=== PATIENT | female | born 1965 | race Caucasian/White ===

== ENCOUNTER 2017-06-09 07:38 | Inpatient (IN) | payer BC ==
--- NOTE | 2017-05-24 19:35 | HP ---
CC: Dr. Lily Mendoza * PREOPERATIVE HISTORY AND PHYSICAL: DATE OF ADMISSION: This patient is scheduled for AA admission by Dr. Mane on 06/09/17. DATE OF PREOPERATIVE HISTORY AND PHYSICAL EXAMINATION: 05/24/17. ATTENDING SURGEON: Dr. Tino Mane (dictated by Lily Roland NP). CHIEF COMPLAINT: Obesity. HISTORY OF PRESENT ILLNESS: The patient is a 52-year-old female with class III obesity, a body mass index of 40, and weight-related comorbidities of sleep apnea and hypertension. She has had multiple structured attempts at weight loss and has not been able to sustain any weight that she did lose. She is seeking bariatric surgery as a more permanent solution to her obesity and comorbidities. She completed 6 months of medically supervised weight loss at [facility] and has completed all of the necessary preoperative diagnostic testing and evaluations. She has been deemed an appropriate candidate by Dr. Mane for laparoscopic sleeve gastrectomy. Dr. Mane described the nature of the surgical procedure, the expected results of the surgery, the relevant risks, benefits, and alternatives, and today, I have reviewed the typical hospitalization and expected postoperative care and recovery. The patient understands the need for compliance with the postoperative stages of the bariatric diet, exercise, vitamin and mineral supplementation, and followup visits. The patient has had a chance to ask questions and stated that she understands the information and is satisfied with the answers given to her questions. She will sign surgical consent on the day of surgery. PAST MEDICAL HISTORY: Significant for hypertension, obstructive sleep apnea requiring the use of CPAP, GERD, bilateral heel spurs, plantar fasciitis, and seasonal allergies. PAST SURGICAL HISTORY: Laparoscopic cholecystectomy, tubal ligation, tonsillectomy. MEDICATIONS: Amlodipine 10 mg p.o. daily in the morning. ALLERGIES: No known drug allergies. FAMILY HISTORY: Father in his mid 80s, described as chronically ill with COPD, hypertension, and fractured hip. Mother alive at age 72, described as obese with hypertension, COPD, oxygen dependent, and hypercholesterolemia. No known anesthesia complications in the family. The patient's maternal grandmother had deep vein thrombosis. Her brother had severe nosebleeds frequently that required cauterization. No other known bleeding tendencies. SOCIAL HISTORY: She is and lives with her . She and her are self-employed, and she works at home. She has never been a smoker. Previously drank alcohol socially and plans to abstain from alcohol postoperatively and denies the use of other substances. REVIEW OF SYSTEMS: She denies any constitutional symptoms. She is treated for hypertension. She denies any chest pain, palpitations, or history of myocardial infarction. She denies any history of deep vein thrombosis or pulmonary embolism. She has seasonal allergies and uses coab-qyf-xhhdbhh Afrin nasal spray as needed. She has obstructive sleep apnea and uses CPAP. She rarely has acid reflux, but it occurs when she has a late dinner. Her preoperative upper GI series reveal a small hiatal hernia. She denies any chronic diarrhea or constipation. She denies any dysuria. She is postmenopausal. She denies any gynecologic complaints. She has a history of plantar fasciitis and bilateral heel spurs and currently has pain in her left heel. She denies any new skin lesions. She denies any neurologic symptoms. She denies anxiety, depression, or suicidal thinking. She denies any history of deep vein thrombosis or pulmonary embolism. She denies any bleeding tendencies and has never received a blood transfusion. She states at the time of her tubal ligation that she was being put under anesthesia, she had a sensation of being suffocated and has a vivid memory of that and is therefore fearful of general anesthesia. PHYSICAL EXAMINATION GENERAL SURVEY: The patient is a 52-year-old morbidly obese female, well developed, in no acute distress. VITAL SIGNS: Height 63 inches, weight 226 pounds, body mass index 40, blood pressure 128/86, pulse 78 and regular, respiratory rate 18, temperature 97.4 tympanic. HEENT: Benign. NECK: Supple. No cervical lymphadenopathy. No thyromegaly. BACK: No CVA tenderness. LUNGS: Breath sounds bilaterally clear and equal. HEART: Regular rate and rhythm. No murmurs or rubs appreciated. ABDOMEN: Obese. Soft. Active bowel sounds. Nondistended. Nontender throughout. Multiple well-healed trocar surgical scars. Infraumbilical hernia that is reducible when she is supine. When she is standing, it bulges out to approximately the size of a tennis ball. No other obvious masses or organomegaly. No skin fold rashes. EXTREMITIES: Warm without edema or skin ulceration. PELVIC AND RECTAL: Deferred. NEUROLOGIC: Alert and oriented x3. Steady gait. SKIN: Warm, dry, intact. IMPRESSION: 1. Class III obesity. 2. Hypertension. 3. Obstructive sleep apnea requiring CPAP. PLAN: AA admission to Dr. Mane's service on 06/09/17, for laparoscopic sleeve gastrectomy. CORY ROLAND, HOSIERY REPAIRER [id number]/[facility] #: [id number] JUSTINO
[~2017-06-09 07:38] MED LIST: Buffered Lidocaine 0.9% SYRIN* 5 ML/SYR SYRINGE INTRADERM ONE; Buffered Lidocaine 0.9% SYRIN* 5 ML/SYR SYRINGE ONE; Clindamycin 900 MG IVPREMIX(* 900 MG/50 ML SDV IV ONE; Famotidine TAB* 20 MG ONE; Famotidine TAB* 20 MG PO ONE; Heparin VIAL(*) 5000 UNITS/ML VIAL (FIVE THOUSAND) ONE; Ibuprofen TAB* 400 MG ONE; Ibuprofen TAB* 400 MG PO ONE; Metoclopramide TAB* 10 MG ONE; Metoclopramide TAB* 10 MG PO ONE; Scopolamine 1.5 mg* PATCH ONE; Scopolamine 1.5 mg* PATCH TRANSDERM ONE; Sodium Citrate/Citric Acid* 15 ML UDC ONE; Sodium Citrate/Citric Acid* 15 ML UDC PO ONE; ceFAZolin 1 GM in Dextrose (*) 1 GM/50 ML BAG IVPB ONE; ceFAZolin 2 GM PREMIX(*) 2 GM/50 ML BAG IVPB ONE
[2017-06-09] MEDS ORDERED: Bupivacaine 0.25% EPI 200,000* 30 ML SDV ONE ×2 (10:19→11:49)
[2017-06-09] MEDS ORDERED: Midazolam* 1 MG/ML 2 ML VIAL (2 MG) ONE (10:35)
[2017-06-09] MEDS ORDERED: Lidocaine 2% PF * 5 ML VIAL ONE (10:35)
[2017-06-09] MEDS ORDERED: Ondansetron INJ* 2 MG/ML VIAL ONE (10:35)
[2017-06-09] MEDS ORDERED: Dexamethasone IV* 4 MG/ML 1 ML (4 MG) ONE (10:35)
[2017-06-09] MEDS ORDERED: Propofol* 10 MG/ML 20 ML BTL IV PUSH ONE (10:35)
[2017-06-09] MEDS ORDERED: Atracurium* 10 MG/ML 10 ML VIAL ONE (10:37)
[2017-06-09] MEDS ORDERED: fentaNYL* 50 MCG/ML 2 ML VIAL (100 MCG VIAL) ONE ×3 (10:42→13:49)
[2017-06-09] MEDS ORDERED: DiMENhydriNATE IV* 50 MG/ML VIAL IV PUSH PRN (12:00)
[2017-06-09] MEDS ORDERED: Bacitracin OINTMENT* 1 TUBE ONE (12:03)
[2017-06-09] MEDS ORDERED: Acetaminophen ADULT LIQ* 650 MG/20.3 ML UDC PO PRN (12:11)
[2017-06-09] MEDS ORDERED: HYDROcodone/ACET. 7.5/325 LIQ* 15 ML UDC PO PRN (12:11)
[2017-06-09] MEDS ORDERED: HYDROmorphone* 1 MG/ML 1 ML SYR ONE (12:48)
[2017-06-09] MEDS: fentaNYL* 50 MCG/ML 2 ML VIAL (100 MCG VIAL) IV PRN ×3 (12:50→13:50)
[2017-06-09] MEDS: HYDROmorphone* 1 MG/ML 1 ML SYR IV PRN ×4 (12:53→18:57)
[2017-06-09] MEDS: Ketorolac INJ* 30 MG/ML 1 ML VIAL IV PRN ×2 (15:42→22:21)
[2017-06-09] MEDS: Ondansetron INJ* 2 MG/ML VIAL IV PRN (15:59)
[2017-06-09] MEDS: Famotidine IV* 10 MG/ML 2 ML (20 mg) IV SCH (18:01)
[2017-06-09] MEDS ORDERED: Metoclopramide IV* 5 MG/ML 2 ML VIAL ONE (19:11)
[2017-06-09] MEDS: Heparin VIAL(*) 5000 UNITS/ML VIAL (FIVE THOUSAND) SUBCUT SCH (22:20)
[2017-06-10] MEDS: HYDROmorphone* 1 MG/ML 1 ML SYR IV PRN (02:57)
[2017-06-10] MEDS: Ondansetron INJ* 2 MG/ML VIAL IV PRN ×3 (02:57→20:26)
[2017-06-10] MEDS: Heparin VIAL(*) 5000 UNITS/ML VIAL (FIVE THOUSAND) SUBCUT SCH ×3 (05:37→21:35)
[2017-06-10] MEDS: Famotidine IV* 10 MG/ML 2 ML (20 mg) IV SCH ×2 (05:37→18:12)
[2017-06-10 06:27] LABS: Hematocrit 38 % (35-47); Hemoglobin 12.6 g/dl (12.0-16.0); Mean Corpuscular HGB Conc 33 g/dl (31-36); Mean Corpuscular Hemoglobin 28 pg (27-31); Mean Corpuscular Volume 86 fL (80-97); Mean Platelet Volume 10 um3 (7.4-10.4); Red Blood Count 4.45 10^6/ul (4.0-5.4); Red Cell Distribution Width 14 % (10.5-15); White Blood Count 12.3 10^3/ul (3.5-10.8)
[2017-06-10 06:41] LABS: BUN/Creatinine Ratio 14.1 (8-20); Calcium 9.4 mg/dL (8.6-10.3); EGFR African American 124.8 (>60); EGFR Non-African American 97.1 (>60); Potassium 3.7 mmol/L (3.5-5.0)
[2017-06-10] MEDS: Metoclopramide IV* 5 MG/ML 2 ML VIAL IV PRN (08:00)
--- NOTE | 2017-06-10 10:53 | RAD ---
Indication: Status post laparoscopic sleeve gastrectomy. Utilizing water-soluble contrast, sleeve gastrectomy was evaluated. There is some dilatation of the fundus of the stomach with a collapsed body of the remainder of the stomach. There is a small amount of contrast noted distally. The possibility of extrinsic compression or postoperative change at the junction between the fundus and the body of the stomach should be considered. Gastroesophageal reflux is noted. IMPRESSION: There is a moderately distended fundus of the stomach with reflux into the esophagus. At the junction of the body and the fundus, there appears to be some narrowing noted which may be postoperative in nature.
[2017-06-10] MEDS: Ketorolac INJ* 30 MG/ML 1 ML VIAL IV PRN ×2 (11:58→20:30)
[2017-06-10] MEDS: D5W 1/2 NS KCl 20 Meq 1000 ML* 1,000 ML IV SCH ×2 (14:30→23:56)
--- NOTE | 2017-06-10 16:55 | PN ---
Progress Note - Progress Note Date of Service: 06/10/17 SOAP: Subjective: Pt seen and examined. positive nausea. Vomited on 2 occasions. Ambulating and using incentive spirometer Objective: AF VSS uo good lungs clear abdo: soft/ND/minimal tenderness dressing intact no calf tenderness UGI: slow flow of contrast through midportion of sleeved stomach Assessment: POD 1 sleeve gastrectomy, umbilical hernia repair Plan: advance to Ice chips only d/c planning
[2017-06-11] MEDS: Heparin VIAL(*) 5000 UNITS/ML VIAL (FIVE THOUSAND) SUBCUT SCH (05:46)
[2017-06-11] MEDS: Famotidine IV* 10 MG/ML 2 ML (20 mg) IV SCH (05:46)
[2017-06-11] MEDS: Ketorolac INJ* 30 MG/ML 1 ML VIAL IV PRN ×2 (05:52→12:00)
[2017-06-11] MEDS: Metoclopramide IV* 5 MG/ML 2 ML VIAL IV PRN (07:35)
--- NOTE | 2017-06-11 09:06 | PN ---
Progress Note - Progress Note Date of Service: 06/11/17 Note: Surgery Progress: S: POD #2. Feels better today. Still feels "gas bubble" sensation in epigastric region. Overall, pain is not too bad (using only Toradol at present). Last episode of vomiting/reflux was last pm. Ambulating, voiding well. Current Medications Acetaminophen (Tylenol Adult Liq*) 650 mg PO Q6H PRN PRN Reason: Temp > 101 F Or Mild Pain Hydrocodone Bitart/Acetaminophen (Nortab 7.5/325 Liq*) 15 ml PO Q6H PRN PRN Reason: PAIN Famotidine (Pepcid Iv*) 20 mg IV Q12H [facility] Last Admin: 06/11/17 05:46 Dose: 20 mg Heparin Sodium (Porcine) (Heparin Vial(*)) 5,000 units SUBCUT Q8HR [facility] Last Admin: 06/11/17 05:46 Dose: 5,000 units Hydromorphone HCl (Dilaudid Iv*) 0.5 mg IV Q3H PRN PRN Reason: PAIN - SEVERE Last Admin: 06/10/17 02:57 Dose: 0.5 mg Potassium Chloride/Dextrose (D5w 1/2 Ns Kcl 20 Meq 1000 Ml*) 1,000 mls @ 75 mls /hr IV PER RATE [facility] Last Admin: 06/10/17 23:56 Dose: 75 mls/hr Ketorolac Tromethamine (Toradol Inj*) 30 mg IV Q6H PRN PRN Reason: PAIN Stop: 06/11/17 12:15 Last Admin: 06/11/17 05:52 Dose: 30 mg Metoclopramide HCl (Reglan Iv*) 10 mg IV Q6H PRN PRN Reason: NAUSEA/VOMITING Last Admin: 06/11/17 07:35 Dose: 10 mg Ondansetron HCl (Zofran Inj*) 4 mg IV Q6H PRN PRN Reason: NAUSEA/VOMITING Last Admin: 06/10/17 20:26 Dose: 4 mg Pharmacy Profile Note (Scopolomine Patch Remove*) 1 note PATCH OFF ONCE ONE Stop: 06/12/17 06:01 O: Afeb; VSS Intake and Output Last 24 Hours 06/09/17 06/10/17 06/11/17 06/12/17 06:59 06:59 06:59 06:59 Intake Total 1911 2341 Output Total 1700 4190 425 Balance 212 -1849 -425 Weight 217 lb Intake: IV Fluids 1911 893 CEFAZOLIN 3 GM 100 CLINDAMYCIN 900 MG 50 D5W 1/2 NS 20 meq KCL 893 LR 362 lr 1400 IVPB 1248 LR 1248 Oral 0 200 Output: Urine 1600 4180 425 Emesis 10 Estimated Blood Loss 100 Other: # Bowel Movements 0 0 # Voids 2 Gen: WN, NAD Heart: reg Lungs: clear ABd: BS (sl hypoactive); incisions w/ variable amts of dried blood; no active bleeding; soft, min tenderness No Labs A: s/p lap sleeve gastrectomy, improving P: likely will start desiree clears today; hopefully home 06/12 (Dr. Mane to see)
[2017-06-11] MEDS ORDERED: Lansoprazole susp Kit 3 MG/ML (30 MG = 10 ML) PO SCH (10:00)
[2017-06-11] MEDS ORDERED: Lansoprazole susp Kit 3 MG/ML (30 MG = 10 ML) ONE (10:00)
[2017-06-11] MEDS ORDERED: Lansoprazole SOLUTAB* 30 MG ONE (11:49)
[2017-06-11 14:24] VITALS: BP 158/90
[2017-06-12] MEDS ORDERED: Scopolomine PATCH Remove* 1 NOTE MISC PATCH OFF ONE (06:00)
[2017-06-12] MEDS ORDERED: Lansoprazole susp Kit 3 MG/ML (30 MG = 10 ML) PO SCH ×2 (09:00)
--- NOTE | 2017-06-15 03:48 | OP ---
CC: Dr. Lily Mendoza; [facility] OPERATIVE REPORT: DATE OF OPERATION: 06/09/17 DATE OF : 63 SURGEON: Tino Mane MD TIME ANALYSIS CLERK: MARILUZ Centeno ANESTHESIOLOGIST: Dr. Patton. ANESTHESIA: General. PRE-OP DIAGNOSES: 1. Clinically severe obesity. 2. Hypertension. 3. Obstructive sleep apnea. 4. Gastroesophageal reflux disease. 5. Umbilical hernia. POST-OP DIAGNOSES: 1. Clinically severe obesity. 2. Hypertension. 3. Obstructive sleep apnea. 4. Gastroesophageal reflux disease. 5. Umbilical hernia. OPERATIVE PROCEDURES: Laparoscopic sleeve gastrectomy and primary closure of umbilical hernia. ESTIMATED BLOOD LOSS: Minimal. FLUIDS: Minimal crystalloid fluid given. SPECIMEN: Portion of the stomach. DRAINS: None. COUNT: Lap pad count and instrument count correct at the end of the procedure. DESCRIPTION OF PROCEDURE: Ms. Krause was identified in the preoperative area, brought to the operati ng room and placed on the operating room table in a supine position. Preoperative antibiotics were given. Sequential devices were placed on bilateral lower extremities. General anesthesia was induc ed. The patient's abdomen was prepped and draped in the standard surgical fashion and a time-out wa s performed. Folds of the umbilicus were elevated anteriorly and a Veress needle was inserted into the abdominal cavity, which was then allowed to insufflate to a pressure of 15 mmHg. The patient tolerated the in sufflation well. [place] between the xiphoid and the umbilicus, just left of midline, a 12-mm trocar was inserted. Laparoscope was inserted through this. There was no evidence of injury from the tro car insertion or from the Veress needle, which was then removed. A clear umbilical hernia defect ap proximately 1.5 incised. Additional trocars were then placed in the following position: Two 5-mm in the left upper quadrant and a 12-mm in the right upper quadrant. The patient was placed in a steep reverse Trendelenburg. The stomach was decompressed with an OG tu be placed by the anesthesiologist. A Cruzito retractor was inserted through a subxiphoid port sit e and the liver was retracted anteriorly into the right. With this retraction, we exposed the gastroesophageal fat pad. This was grasped and retracted towar ds the right lower quadrant and blunt dissection was carried out to expose the left micheal. Review of the stomach showed that it was now decompressed. It was normal appearing without any lesi on. We could see some post surgical changes in the gallbladder fossa, but the pylorus muscle was re adily identifiable and we have counted approximately 6 cm proximal to this and made a retrogastric w indow along the greater curvature. The vasculature to this greater curvature was then taken with a LigaSure device right up to the angle of His. Posterior attachments were similarly taken until the stomach could be completely rotated along its axis. Next, the sleeve gastrectomy was created utilizing a 60-mm purple ALYSHA stapling device with Tri-Stapl e technology with reinforcements and we stapled from the area of the greater curvature just 6 cm pro ximal to the pylorus extending it toward the incisura. Prior to firing the stapler, a 40-Turkish filipe gie was inserted by the anesthesiologist and passed distally. Additional firings with similarly amparo ded 60 mm purple stapling device with reinforcements, were taken right up to the fundus removing a s ignificant portion of the stomach, which was then placed in an Endoscopic retrieval bag. Review of the staple line showed no bleeding. The bougie was easily removed. Cruzito retractor was then al so removed. Hemostasis was excellent. Attention was then turned towards the umbilical defect. Two interrupted 0 Polysorb sutures were uti lized through a separate stab incision overlying the umbilical skin and we suture closed this hernia defect that measured approximately 1.5 cm. There were no contents and we did not dissect the sac. Next, the stomach was then removed through the right upper quadrant port site with an endoscopic ret rieval bag and passed off as specimen. The abdomen was allowed to collapse. Trocar was removed und er direct vision and all skin incisions were reapproximated with skin zaida followed by a sterile dressing. The patient tolerated the procedure well, was transferred to the PACU in stable condition . [id number]/[facility] #: [id number]
--- NOTE | 2017-06-15 05:29 | DS ---
CC: Dr. Lily Mendoza DISCHARGE SUMMARY: DATE OF ADMISSION: 06/09/17 DATE OF DISCHARGE: 06/11/17 HISTORY: Ms. Krause is a 52-year-old female, worked up as an outpatient, with clinically severe obes ity. She was noted to also have an umbilical hernia on the day of surgery, who underwent a laparosc opic sleeve gastrectomy and umbilical hernia repair. Please see operative report for full details. Case was uneventful and the patient was transferred to the PACU and on to the short stay surgical u nit. The patient was treated with pain medications and antinausea medications, and she was maintained n.p .o. status until postoperative day 1. She underwent an upper GI study as is routine, on postoperati ve day 1. These images were reviewed with the radiologist. It did show a narrowing within the body of the sleeved stomach. This was felt to be edema or postsurgical changes. The patient was only a dvanced to ice chips on this postoperative day 1 and stayed in the hospital another day. By postoperative day 2, patient was ambulating and feeling somewhat better. She was started on a p. o. diet with just clear fluids. These were tolerated for the most part with 2 episodes of vomiting. One episode the day before was bloody and the one on day of discharge was not bloody. She was jeovanny luated on day of discharge by both and Brandon Valero and was discharged home on a bariatric clear di et. She was given a prescription for omeprazole and restarted on her multivitamins, for planned fol lowup as an outpatient. [id number]/[facility] #: [id number]
== END 2017-06-11 14:35 | disposition home or self-care (01) | DRG 403 ==
LOC: AA 07:38 → SSU 12:11
PROVIDERS: ADMIT Surgery; ATTEND Surgery
PROC: 0WQF4ZZ Repair Abdominal Wall, Percutaneous Endoscopic Approach (ICD-10-PCS; 2017-06-09)
PROC: 0DB64Z3 Excision of Stomach, Percutaneous Endoscopic Approach, Vertical (ICD-10-PCS; principal; 2017-06-09 09:00)
DX: E66.01 Morbid (severe) obesity due to excess calories (principal); I10 Essential (primary) hypertension; G47.33 Obstructive sleep apnea (adult) (pediatric); K21.9 Gastro-esophageal reflux disease without esophagitis; K44.9 Diaphragmatic hernia without obstruction or gangrene; R11.2 Nausea with vomiting, unspecified; J30.2 Other seasonal allergic rhinitis; Z90.49 Acquired absence of other specified parts of digestive tract; Z98.51 Tubal ligation status; Z82.5 Family history of asthma and other chronic lower respiratory diseases; Z83.49 Family history of other endocrine, nutritional and metabolic diseases; Z68.41 Body mass index [BMI] 40.0-44.9, adult; Z84.89 Family history of other specified conditions; Z82.49 Family history of ischemic heart disease and other diseases of the circulatory system
CPT/HCPCS: 36415; 74246; 80048; 85025; 88307; 94760; A9270-GY; J0690; J1100; J1170; J1644; J1885; J2250; J2405; J2704; J3010